=== PATIENT | female | born 1990 | race Caucasian/White ===

== ENCOUNTER 2019-03-01 05:30 | Inpatient (IN) ==
[2019-03-01] MEDS ORDERED: REGLAN PO ONE (05:40)
[2019-03-01] MEDS ORDERED: PEPCID PO ONE (05:40)
[2019-03-01] MEDS ORDERED: KEFZOL 1 GM/D5W 1 GM/50 ML IVPB IV PRN (05:40)
[2019-03-01] MEDS ORDERED: LR 1,000 ML IV SCH ×2 (05:45→08:45)
[2019-03-01 06:18] LABS: URINE SOURCE VOIDED
[2019-03-01] MEDS ORDERED: BICITRA PO ONE (06:18)
[2019-03-01 06:27] LABS: BASO# 0.04 X1000 (0.0-0.2); BASO% 0.3 % (0.0-0.8); EOS# 0.06 X1000 (0.0-0.7); EOS% 0.4 % (0.0-10.0); HEMATOCRIT 37.8 % (37.0-47.0); HEMOGLOBIN 12.9 g/dL (12.0-16.0); IMM GRAN# 0.08 X1000 (0.0-0.04); IMM GRAN% 0.5 % (0.0-0.5); LYMPH# 3.09 X1000 (1.2-3.4); MCH 31.2 PG (27-31); MCHC 34.1 g/dL (33-37); MCV 91.5 FL (81-99); MONO# 1.06 X1000 (0.11-0.59); MONO% 6.9 % (1.7-9.3); MPV 12.7 FL (7.4-10.4); NEUT# 11.13 X1000 (1.4-6.5); NEUT% 71.9 % (42.2-75.2); PLT 244 X1000 (130-400); RBC 4.13 XMIL (4.2-5.4); RDW 13.2 % (11.5-14.5); WBC 15.46 X1000 (4.8-10.8)
[2019-03-01] MEDS ORDERED: SODIUM CHLORIDE 0.9% 10 ML ONE ×2 (06:55→08:09)
[2019-03-01] MEDS ORDERED: PITOCIN ONE ×3 (06:55→08:12)
[2019-03-01] MEDS ORDERED: EPHEDRINE ONE ×2 (06:56→08:09)
--- NOTE | 2019-03-01 06:57 | H&P REVIEW ---
H&P Update H&P Review: H&P was reviewed and patient was examined, No change has occurred in the patient's condition
[2019-03-01 07:00] LABS: BILIRUBIN URINE NEGATIVE (NEGATIVE); BLOOD URINE NEGATIVE (NEGATIVE); GLUCOSE URINE NEGATIVE (NEGATIVE); KETONE URINE 1+(Small) mg/dL (NEGATIVE); LEUKOCYTES URINE NEGATIVE (NEGATIVE); NITRITE URINE NEGATIVE (NEGATIVE); PROTEIN URINE NEGATIVE (NEGATIVE); UROBILINOGEN URINE NORMAL
[2019-03-01 07:01] LABS: CLARITY CLEAR (CLEAR); COLOR YELLOW
[2019-03-01 07:31] LABS: UR AMPHETAMINES QUAL NONE DETECTED (NONE DETECT); UR BARBITUATES QUAL NONE DETECTED (NONE DETECT); UR BENZODIAZEPIN QUAL NONE DETECTED (NONE DETECT); UR CANNABINOIDS QUAL NONE DETECTED (NONE DETECT); UR COCAINE QUAL NONE DETECTED (NONE DETECT); UR METHADONE QUAL NONE DETECTED (NONE DETECT); UR METHAMPHETAMINE QUAL NONE DETECTED (NONE DETECT); UR OPIATES QUAL NONE DETECTED (NONE DETECT); UR OXYCODONE QUAL NONE DETECTED (NONE DETECT); UR PCP QUAL NONE DETECTED (NONE DETECT); UR PROPOXYPHENE QUAL NONE DETECTED (NONE DETECT); UR TCA QUAL NONE DETECTED (NONE DETECT)
[2019-03-01] MEDS ORDERED: FENTANYL ONE (07:42)
[2019-03-01] MEDS ORDERED: ZOFRAN ONE (07:46)
[2019-03-01] MEDS ORDERED: HYDROXYZINE IM PRN (08:22)
[2019-03-01] MEDS ORDERED: MYLICON PO PRN (08:22)
[2019-03-01] MEDS ORDERED: DULCOLAX PR PRN (08:22)
[2019-03-01] MEDS ORDERED: BOOSTRIX VACCINE IM ONE (08:22)
[2019-03-01] MEDS ORDERED: PITOCIN 20 UNITS/NS 20 UNITS/1,000 ML IV.SOLN IV ONE (08:22)
[2019-03-01] MEDS ORDERED: PHENERGAN IM PRN (08:22)
[2019-03-01] MEDS ORDERED: PITOCIN IM PRN (08:22)
[2019-03-01] MEDS ORDERED: ATARAX PO PRN (08:22)
[2019-03-01] MEDS ORDERED: AMBIEN PO PRN (08:22)
[2019-03-01] MEDS ORDERED: M-M-R II VACCINE SUBQ ONE (08:22)
[2019-03-01] MEDS ORDERED: DEMEROL IM PRN (08:22)
[2019-03-01] MEDS ORDERED: DEMEROL PO PRN ×2 (08:22)
[2019-03-01] MEDS ORDERED: PHENERGAN IV PRN (08:45)
[2019-03-01] MEDS ORDERED: BENADRYL IV PRN (08:45)
[2019-03-01] MEDS ORDERED: NARCAN IV PRN (08:45)
[2019-03-01] MEDS: MORPHINE PCA IV PRN ×3 (09:01→19:05)
[2019-03-01] MEDS: MYLICON PO SCH ×4 (12:26→21:16)
[2019-03-01] MEDS: PITOCIN 10 UNITS/NS 1,000 ML IV SCH ×2 (13:20→21:15)
[2019-03-01] MEDS: PERICOLACE PO SCH (21:17)
[2019-03-02] MEDS: MORPHINE PCA IV PRN (02:58)
--- NOTE | 2019-03-02 07:20 | OB/GYN PROGRESS NOTE ---
Progress Note OB - . OB Progress Note: Vital Signs - 24 hr 03/01/19 08:27 03/01/19 08:37 03/01/19 08:47 Temperature 96.2 F L Pulse Rate 87 72 74 Respiratory Rate 18 18 18 Blood Pressure 121/59 Blood Pressure [Right Arm] 121/59 130/62 124/81 O2 Sat by Pulse Oximetry 100 100 99 03/01/19 08:57 03/01/19 09:07 03/01/19 09:17 Temperature Pulse Rate 67 61 60 Respiratory Rate 18 18 18 Blood Pressure Blood Pressure [Right Arm] 126/59 121/59 142/71 O2 Sat by Pulse Oximetry 100 100 100 03/01/19 09:27 03/01/19 12:00 03/01/19 16:00 Temperature 97.2 F L 97.2 F L Pulse Rate 65 92 H 70 Respiratory Rate 16 18 12 Blood Pressure 130/60 114/61 123/61 Blood Pressure [Right Arm] 130/60 O2 Sat by Pulse Oximetry 100 97 97 03/01/19 16:56 03/01/19 20:40 03/02/19 00:05 Temperature 97.6 F 98 F Pulse Rate 78 75 73 Respiratory Rate 12 18 18 Blood Pressure 128/68 101/59 Blood Pressure [Right Arm] O2 Sat by Pulse Oximetry 98 99 03/02/19 04:05 Temperature 98.2 F Pulse Rate 75 Respiratory Rate 18 Blood Pressure 113/75 Blood Pressure [Right Arm] O2 Sat by Pulse Oximetry 97 Laboratory Results - last 24 hr 03/01/19 03/01/19 03/01/19 06:00 06:00 06:00 Urine Opiates Screen NONE DETECTED Ur Oxycodone Screen NONE DETECTED Urine Methadone Screen NONE DETECTED U Propoxyphene Qual NONE DETECTED Ur Barbituates Screen NONE DETECTED Ur Tricyclics Screen NONE DETECTED Ur Phencyclidine Scrn NONE DETECTED Ur Amphetamines Screen NONE DETECTED U Methamphetamines Scrn NONE DETECTED U Benzodiazepines Scrn NONE DETECTED Urine Cocaine Screen NONE DETECTED U Cannabinoids Screen NONE DETECTED RPR NON-REACTIVE Blood Type O POSITIVE Antibody Screen NEGATIVE No complaints, pain well controlled, denies PIH/Orthostatic symptoms A&O NAD CTAB RRR S/ND/appropriate post op discomfort Bandage C/D/I No C/C/E POD 1 s/p Repeat LTCS for breech presentation doing well - ambulate - post op care - anticipate D/C home Monday.
[2019-03-02 08:16] LABS: HEMATOCRIT 36.3 % (37.0-47.0); HEMOGLOBIN 11.7 g/dL (12.0-16.0); MCH 30.4 PG (27-31); MCHC 32.2 g/dL (33-37); MCV 94.3 FL (81-99); MPV 12.9 FL (7.4-10.4); RBC 3.85 XMIL (4.2-5.4); RDW 13.3 % (11.5-14.5); WBC 26.16 X1000 (4.8-10.8)
[2019-03-02] MEDS ORDERED: LR 1,000 ML IV SCH (08:22)
[2019-03-02] MEDS: PERCOCET-10 PO PRN ×2 (09:24→17:03)
[2019-03-02] MEDS: MOTRIN PO PRN ×2 (09:25→17:03)
[2019-03-02] MEDS: MYLICON PO SCH ×2 (09:25→17:04)
[2019-03-02] MEDS: PRECARE PO SCH (09:25)
[2019-03-03] MEDS: PERCOCET-10 PO PRN ×2 (01:14→08:52)
[2019-03-03] MEDS: PERICOLACE PO SCH (01:14)
[2019-03-03] MEDS: MOTRIN PO PRN ×2 (01:15→08:52)
[2019-03-03] MEDS: MYLICON PO SCH ×3 (01:15→08:52)
[2019-03-03 07:45] VITALS: BP 134/68
[2019-03-03] MEDS: PRECARE PO SCH (08:52)
--- NOTE | 2019-03-03 09:54 | OB/GYN PROGRESS NOTE ---
Progress Note OB - . Patient Problems: Current Active Problems Problem Status Onset Breech presentation at Acute S/P primary low transverse Acute OB Progress Note: Vital Signs - 24 hr 03/02/19 11:30 03/02/19 17:00 03/03/19 04:40 Temperature 97.8 F 98 F 97.6 F Pulse Rate 67 73 81 Respiratory Rate 20 20 18 Blood Pressure 119/56 112/72 119/72 O2 Sat by Pulse Oximetry 97 98 99 03/03/19 07:44 Temperature 97.6 F Pulse Rate 72 Respiratory Rate 18 Blood Pressure 134/68 O2 Sat by Pulse Oximetry 98 HPI: Pt seen and examined. Currently w/o complaints. Pain well controlled on PO pain med. Ambulating and urinating w/o difficulty. Tolerating regular diet. +breast feeding, decrease lochia. Denies fever, chills, N/V VS: please see above GEN: NAD, AAO x3 CV: RRR RESP: CTA b/l ABD: soft, NTTP, FF below umbilicus INC: c/d/i EXT: neg CT ASSESSMENT: PPD#2 s/p PLAN: -routine PP care -plan for d/c home today per pt request -f/u in 1 week
--- NOTE | 2019-03-03 10:51 | OPERATIVE NOTE ---
PROCEDURE DATE: 03/01/2019 PREOPERATIVE DIAGNOSES: 1. Term at 39 weeks and 6 days. 2. Footling breech presentation. POSTOPERATIVE DIAGNOSIS: 1. Term at 39 weeks and 6 days. 2. Footling breech presentation. PROCEDURE: Primary low transverse section via Pfannenstiel incision. SURGEON: Dr. Edwin Maya. CIO: Dr. Gael Dunn. ANESTHESIA: Spinal. ESTIMATED BLOOD LOSS: 800 mL. SPECIMEN: Placenta to Pathology. COMPLICATIONS: None. DESCRIPTION OF PROCEDURE: The patient was taken to the operating room where spinal anesthesia was found to be adequate. Two grams of Ancef were given for infection prophylaxis. She was prepped and draped in a dorsal supine position with a leftward tilt. A Pfannenstiel skin incision was made with a scalpel. The incision was carried down to the fascial layer with the Bovie. The fascia was incised and extended laterally. The inferior aspect of the fascia was grasped with Jesus clamps. The underlying rectus muscle and pyramidalis were dissected off sharply with Wade scissors. In a similar fashion, the superior aspect of the fascia was elevated with Jesus clamps and the rectus muscle was dissected off. Hemostasis was achieved with the Bovie. The rectus muscle was in the midline down to the level of the pubic symphysis. Preperitoneal fatty tissue was bluntly dissected to expose the peritoneum. The peritoneum was found to be free of adherent bowel and entered bluntly. The peritoneal incision was extended superiorly and inferiorly to the bladder reflection with good visualization of the bladder. The bladder blade was inserted and the vesicouterine peritoneum identified. The vesicouterine peritoneum was opened with Metzenbaum scissors and a bladder flap was developed. The bladder blade was repositioned to keep the bladder out of the operative field. The lower uterine segment was incised with a scalpel. The amniotic sac was ruptured and clear fluid was noted. Uterine incision was extended bluntly with downward and upward traction. The fetus was in footling breech presentation. The bilateral legs and feet were grasped and delivered to the level of the umbilicus. The blue towel was wrapped around the abdomen. The abdomen was lifted using a blue towel and the arms were delivered using Pinard procedure with flexion at the elbows bilaterally. After delivery of the 's abdomen and arms, delivery of the head was obtained with flexion of the mandible with the assistance of fundal pressure. The was delivered without difficulty. The mouth and nose were suctioned with a bulb. The cord was clamped and cut. The infant was handed off to the waiting superintendent [employer] staff. IV oxytocin was initiated to facilitate uterine contractions. The placenta was delivered intact with manual massage of the uterine fundus. The uterus was then exteriorized. The inside of the uterus was gently wiped with a lap sponge to assure complete removal of placental membranes. The uterine incision was closed with 0 Monocryl suture in a running locked fashion. The ovaries and tubes were found to be normal. The uterus, tubes, and ovaries were then returned to the abdominal cavity. Blood clots and fluid were wiped out of the abdomen and pelvis with moist laparotomy sponges. The uterine incision was reinspected and good hemostasis was noted. The fascial layer was then closed with 0 Vicryl in a running nonlocking fashion. The subcutaneous fatty tissue was reapproximated with 2-0 plain gut suture in a running nonlocking fashion. The skin was closed with 4-0 Monocryl suture using a Nuno needle insert. The patient tolerated the procedure well. All counts were correct x2. The patient was taken to recovery room in stable condition.
== END 2019-03-03 16:00 | disposition home or self-care (01) | DRG 788 ==
LOC: P.LD 05:30
PROVIDERS: ADMIT Obstetrics & Gynecology; ATTEND Obstetrics & Gynecology